=== PATIENT | female | born 1995 | race African-American/Black ===

== ENCOUNTER → 2019-02-04 | Outpatient (CLI) | payer OTHER ==
--- NOTE | 2019-02-04 07:38 | REP ---
Obstetric ultrasound, third trimester for position and growth: There are no comparisons available. There is a single intrauterine gestation in a vertex presentation. There is movement and cardiac activity. The heart rate is 139 beats per minute. The placenta is anterior. There is no previa or abruptio. The placenta is grade 1. The amniotic fluid volume subjectively is normal. The amniotic fluid index is 14.2 (7.9 - 24.9). The cervix measures 4.8 cm length. By today's ultrasound gestational age is 36 weeks 1 day/JEFFERY 03/03/2019. By LMP gestational age is 35 weeks 1 day/JEFFERY 03/10/2019. weight is 3071 gm/6 pounds, 12 ounces. This is the 83rd percentile for 35 weeks 1 day. Umbilical artery Doppler assessment: S/D ratio 2.5 (2.30-3.30) Resistive Index 0.6 (0.59-0.75 Diastolic Velocity 21.3 (>10 cm/sec) Because of gestational age, a complete anatomic survey cannot be performed. However, during the examination the following structures are identified and are unremarkable: Cranium, cavum septum pellucidum, four-chamber heart, stomach, kidneys, bladder and spine. Electronically Signed by Rivera Allen MD 02/04/2019 07:30 A
== END ==
LOC: M RAD 06:12
PROVIDERS: ATTEND Family Medicine
DX: Z34.83 Encounter for supervision of other normal pregnancy, third trimester (principal); Z3A.35 35 weeks gestation of pregnancy

== ENCOUNTER 2019-02-15 12:16 | Outpatient (CLI) | payer OTHER ==
[~2019-02-15] VITALS: Ht 175.3 cm; Wt 111.7 kg
[2019-02-15 12:34] VITALS: BP 131/70
== END 2019-02-15 14:50 | disposition home or self-care (01) ==
LOC: M LDO 12:16
PROVIDERS: ATTEND Obstetrics & Gynecology
DX: O36.8131 Decreased fetal movements, third trimester, fetus 1 (principal); Z3A.36 36 weeks gestation of pregnancy
CPT/HCPCS: 59025; 76815; G0378; G0463